=== PATIENT | female | born 1960 | race Caucasian/White ===

== ENCOUNTER 2017-04-02 14:24 | Emergency (ER) | payer OTHER | END 2017-04-02 15:08 | disposition left against medical advice (07) | LOC: ER1 14:24 | DX: Z53.21 Procedure and treatment not carried out due to patient leaving prior to being seen by health care provider (principal) ==

== ENCOUNTER 2017-05-13 03:58 | Emergency (ER) | payer OTHER ==
[2017-05-13 05:04] LABS: HEMOGLOBIN 14.5 gm/dl (12.3-15.3); RED BLOOD COUNT 4.68 M/UL (4.00-5.10); WHITE BLOOD COUNT 13.5 K/UL (4.5-11.0)
[2017-05-13 07:23] LABS: BUN/CREATININE RATIO 22 (0-10)
== END 2017-05-13 14:08 | disposition home or self-care (01) ==
LOC: ER1 03:58
PROVIDERS: Student in an Organized Health Care Education/Training Program
DX: N13.2 Hydronephrosis with renal and ureteral calculous obstruction (principal); K59.00 Constipation, unspecified; N39.0 Urinary tract infection, site not specified; I11.9 Hypertensive heart disease without heart failure; E78.5 Hyperlipidemia, unspecified; K21.9 Gastro-esophageal reflux disease without esophagitis; F17.210 Nicotine dependence, cigarettes, uncomplicated; Z88.8 Allergy status to other drugs, medicaments and biological substances; Z90.49 Acquired absence of other specified parts of digestive tract; Z79.01 Long term (current) use of anticoagulants; Z79.82 Long term (current) use of aspirin; Z79.899 Other long term (current) drug therapy
CPT/HCPCS: 36415; 80053; 81001; 83690; 84484; 85025; 85610; 85730; 87086; 93005; 96361; 96365; 96375; 96376; 99284; J0696; J2405; J7030; J7050; Q9962

== ENCOUNTER 2020-12-15 20:47 | Emergency (ER) | payer OTHER ==
[~2020-12-15 20:47] MED LIST: NAPROSYN500 MG PO
[2020-12-15] MEDS ORDERED: TORADOL 10 MG T10 MG PO (21:59)
== END 2020-12-15 22:06 | disposition home or self-care (01) ==
LOC: ER1 20:47
DX: M25.561 Pain in right knee (principal); R22.41 Localized swelling, mass and lump, right lower limb; I10 Essential (primary) hypertension; F17.210 Nicotine dependence, cigarettes, uncomplicated; Z79.899 Other long term (current) drug therapy; Z88.8 Allergy status to other drugs, medicaments and biological substances
CPT/HCPCS: 73564; 96372; 99283; J1885

== ENCOUNTER → 2020-12-19 | Outpatient (CLI) | payer OTHER ==
[~2020-12-19] MED LIST changes: +TORADOL 10 MG T10 MG PO
[2020-12-19 16:30] LABS: HEMOGLOBIN 15.4 gm/dl (12.3-15.3); RED BLOOD COUNT 4.94 M/UL (4.00-5.10); WHITE BLOOD COUNT 9.4 K/UL (4.5-11.0)
[2020-12-19 16:51] LABS: BUN/CREATININE RATIO 17 (0-10)
== END ==
LOC: LAB 16:02
PROVIDERS: Nurse Practitioner Family
DX: I50.22 Chronic systolic (congestive) heart failure (principal); M25.561 Pain in right knee
CPT/HCPCS: 36415; 80053; 84550; 85025

== ENCOUNTER → 2021-01-09 | Outpatient (CLI) | payer OTHER | LOC: EXRD 12-29 10:00 | DX: M79.604 Pain in right leg (principal) | CPT/HCPCS: 93971 ==

== ENCOUNTER → 2021-06-08 | Outpatient (CLI) | payer OTHER | LOC: EXRD 15:18 | DX: M54.5 Low back pain (principal); M25.551 Pain in right hip; M25.552 Pain in left hip; M47.816 Spondylosis without myelopathy or radiculopathy, lumbar region | CPT/HCPCS: 72100; 73522 ==